=== PATIENT | female | born 1995 | race Caucasian/White ===

== ENCOUNTER 2016-07-04 20:44 | Emergency (ER) | payer BC ==
[~2016-07-04] VITALS: Ht 175.3 cm; Wt 59.1 kg
[2016-07-04 20:46] VITALS: BP 135/80; PULSE 99; RESP 16; TEMP 99.1; O2SAT 97
--- NOTE | 2016-07-04 20:56 | PD ---
HPI Chief Complaint: Cold / Flu Symptoms Time Seen by Provider: 20:56 Travel History International Travel<30 days: No Contact w/Intl Traveler<30days: No Traveled to known affect area: No History of Present Illness HPI 20-year-old female with no significant medical history presents to the emergency department for evaluation of sore throat, body aches, fever, and chills worsening over the last 4 days. Patient states she has been taking over- the-counter medication with no improvement in her symptoms. Denies nausea, vomiting, diarrhea. Denies any cough, chest pain, or tightness. Patient has no other symptoms to report. [facility] Past Medical History Medical History: Denies Significant Hx ?: Not LMP: 06/24/2016 Social History Alcohol Use: No Tobacco Use: No Substance Use: No Allergies-Medications (Allergen,Severity, Reaction): Coded Allergies: No Known Allergies (Unverified , 07/04/16) Reported Meds & Prescriptions Reported Meds & Active Scripts Active No Active Prescriptions or Reported Medications Review of Systems Except as stated in HPI: all other systems reviewed are Neg Physical Exam Narrative GENERAL: Well-nourished, well-developed female patient, ambulatory and in no acute distress SKIN: Warm and dry. HEAD: Normocephalic. Atraumatic EARS: Bilateral pinnae and external canals appear within normal limits. Bilateral tympanic membranes without erythema, dullness or perforation. EYES: No scleral icterus. No injection or drainage. ENT: Mucosa pink and moist. Moderate erythema without exudates. No uvular edema. No uvular, palatal, or tonsillar deviation. Airway patent. Nasal turbinates appear normal without nasal blood, purulent drainage or septal hematoma. NECK: Supple, trachea midline. No JVD or lymphadenopathy. CARDIOVASCULAR: Regular rate and rhythm without murmurs, gallops, or rubs. RESPIRATORY: Breath sounds equal bilaterally. No accessory muscle use. GASTROINTESTINAL: Abdomen soft, non-tender, nondistended. MUSCULOSKELETAL: No cyanosis, or edema. BACK: Nontender without obvious deformity. No CVA tenderness. Data Data Last Documented VS Vital Signs Date Time Temp Pulse Resp B/P Pulse Ox O2 Delivery O2 Flow Rate FiO2 07/04/16 20:46 99.1 99 16 135/80 97 Room Air Orders Influenzae A/B Antigen (07/04/16 20:51) Group A Rapid Strep Screen (07/04/16 20:51) Ibuprofen (Motrin) (07/04/16 21:00) Strep Culture (Group A) (07/04/16 21:00) MDM Medical Decision Making Medical Screen Exam Complete: Yes Emergency Medical Condition: Yes Medical Record Reviewed: Yes Differential Diagnosis Influenza versus pharyngitis strep versus bacterial versus viral syndrome versus common cold Narrative Course 20-year-old female presents to emergency department for evaluation. Influenza rapid strep screen are negative. This is likely a viral illness. Symptomatic management is recommended. Patient will be discharged home to follow-up with primary care provider. She is to return immediately with any acute worsening symptoms. Diagnosis Primary Impression: Viral illness Referrals: Primary Care Physician Patient Instructions: General Instructions, Influenza (ED) Departure Forms: Tests/Procedures, Work Release Enter return to work date: Jul 08, 2016 Additional Instructions: Rest Maintain adequate oral hydration Tylenol and/or ibuprofen directed on the package as needed for fever and/or pain Follow-up with your primary care provider Return immediately to the emergency department with any acute worsening of symptoms Med/Other Pt SpecificInfo: No Change to Meds Scripts No Active Prescriptions or Reported Meds Disposition: 01 DISCHARGE HOME Condition: Stable ReneHilaryva RODRIGUEZ Jul 04, 2016 20:56
[2016-07-04] MEDS ORDERED: IBUPROFEN 800 MG TAB PO ONE (21:00)
== END 2016-07-04 21:58 | disposition home or self-care (01) ==
LOC: NEPB 20:44
DX: B34.9 Viral infection, unspecified (principal)
CPT/HCPCS: 87081; 87804; 87880; 99283

== ENCOUNTER 2017-03-12 17:53 | Emergency (ER) | payer BC, OTHER ==
[~2017-03-12] VITALS: Ht 175.3 cm; Wt 60.0 kg
[2017-03-12 17:55] VITALS: BP 130/85; PULSE 96; RESP 18; TEMP 99.1; O2SAT 96
[2017-03-12] MEDS ORDERED: NORE5TAB PO (18:45)
[2017-03-12] MEDS ORDERED: IBUPROFEN 800 MG TAB PO ONE (19:15)
--- NOTE | 2017-03-12 19:15 | PD ---
HPI Chief Complaint: Fall Time Seen by Provider: 18:42 Travel History International Travel<30 days: No Contact w/Intl Traveler<30days: No Traveled to known affect area: No History of Present Illness HPI 21-year-old female here after being thrown off her horse and landing on the ground. She is reporting loss of consciousness, neck pain, right knee pain, low back pain. She denies paresthesia or weakness in extremities. She denies visual changes, chest pain, shortness of breath, abdominal pain. Severity moderate. Exacerbated by movement and relieved with rest. C-collar placed in triage. PFSH Past Medical History Medical History: Denies Significant Hx Diminished Hearing: No Tetanus Vaccination: > 5 Years Influenza Vaccination: Yes ?: Not LMP: 03/12/17 Past Surgical History Surgical History: No Previous Surgery Social History Alcohol Use: Yes (rare) Tobacco Use: No Substance Use: No Allergies-Medications (Allergen,Severity, Reaction): Coded Allergies: No Known Allergies (Unverified , 03/12/17) Reported Meds & Prescriptions Reported Meds & Active Scripts Active Flexeril (Cyclobenzaprine HCl) 10 Mg Tab 10 Mg PO TID Reported Norethindrone (Norethindrone Acetate) 5 Mg Tab 20 Mg PO DAILY Review of Systems Except as stated in HPI: all other systems reviewed are Neg General / Constitutional: No: Fever Eyes: No: Visual changes HENT: No: Headaches Cardiovascular: No: Chest Pain or Discomfort Respiratory: No: Shortness of Breath Gastrointestinal: No: Abdominal Pain Physical Exam Narrative GENERAL: Alert well-appearing female resting comfortably on the stretcher. SKIN: Focused skin assessment warm/dry. No areas of ecchymosis. HEAD: Atraumatic. Normocephalic. EYES: Pupils equal and round. No scleral icterus. No injection or drainage. EOMs intact ENT: No nasal bleeding or discharge. Mucous membranes pink and moist. NECK: Trachea midline. No JVD. Generalized posterior tenderness including cervical spine. CARDIOVASCULAR: Regular rate and rhythm. No murmur appreciated. CHEST: No rib tenderness or crepitus. RESPIRATORY: No accessory muscle use. Clear to auscultation. Breath sounds equal bilaterally. GASTROINTESTINAL: Abdomen soft, non-tender, nondistended. MUSCULOSKELETAL: No obvious deformities. No clubbing. No cyanosis. RLE: anterior knee pain, no deformity, no effusion, the joint is stable, pain with full flexion, 2+ dorsal pedis pulse. The extremity is neurovascular intact. NEUROLOGICAL: Awake and alert. No obvious cranial nerve deficits. Motor grossly within normal limits. Normal speech. PSYCHIATRIC: Appropriate mood and affect; insight and judgment normal. Data Data Last Documented VS Vital Signs Date Time Temp Pulse Resp B/P (MAP) Pulse Ox O2 Delivery O2 Flow Rate FiO2 03/12/17 18:46 17 99 Room Air 03/12/17 17:55 99.1 96 130/85 (100) Orders Orders Ct Cerv Spine W/O Contrast (03/12/17 ) Ct Brain W/O Iv Contrast(Rout) (03/12/17 ) Knee, Complete (4vws) (03/12/17 ) Spine, Lumbar Comp W/Obliq (03/12/17 ) Ed Urine Pregnancytest Poc (03/12/17 19:11) Ibuprofen (Motrin) (03/12/17 19:15) MDM Medical Decision Making Medical Screen Exam Complete: Yes Emergency Medical Condition: Yes Differential Diagnosis cervical strain vs cervical fx vs lumbar fx vs knee fx vs contusion Narrative Course 21 year old female here for evaluation after being thrown from a horse with reported LOC, neck pain, knee pain, and back pain. Her vitals are stable. She is well appearing. C-collar was placed in triage. She denies severe headache, visual changes, paresthesias/weakness in extremities, chest pain, abdominal pain , or incontinence. On exam she is noted to have posterior generalized neck pain , right anterior knee pain without deformity, and midline lumbar spine tenderness. Her abdomen is soft and nontender. CT of the brain: No acute abnormality CT of Cervical spine: No fracture X-ray lumbar spine: No fracture X-ray right knee: No fracture Diagnostic studies discussed with patient. The c-collar was removed. Her repeat neurologic exam is normal. She will be treated for upper and lower back strain and right knee contusion. Return precautions discussed. Patient verbalizes understanding and agrees plan. Diagnosis Primary Impression: Cervical strain Qualified Codes: S16.1XXA - Strain of muscle, fascia and tendon at neck level , initial encounter Additional Impressions: Lumbar strain Qualified Codes: S39.012A - Strain of muscle, fascia and tendon of lower back , initial encounter Head injury with loss of consciousness Referrals: Primary Care Physician Departure Forms: Tests/Procedures, Work Release Enter return to work date: Mar 17, 2017 Additional Instructions: take over the counter motrin 600-800mg by mouth every 6-8 hours as need for pain take the muscle relaxer as need for muscle spasms avoid heavy lifting or strenuous activities Scripts Cyclobenzaprine (Flexeril) 10 Mg Tab 10 MG PO TID for Muscle Spasm, #20 TAB 0 Refills Prov: Liz Riojas 03/12/17 Disposition: 01 DISCHARGE HOME Condition: Stable Liz Riojas Mar 12, 2017 19:15
--- NOTE | 2017-03-12 20:26 | RADRPT ---
EXAM DATE/TIME: 03/12/2017 20:19 [facility] COMPARISON: No previous studies available for comparison. INDICATIONS : Trauma, patient fell off horse. Positve LOC. RADIATION DOSE: 30.97 CTDIvol (mGy) MEDICAL HISTORY : None SURGICAL HISTORY : None. ENCOUNTER: Initial ACUITY: 1 day PAIN SCALE: 5/10 LOCATION: Left cranial TECHNIQUE: Multiple contiguous axial images were obtained of the head. Using automated exposure control and adj ustment of the mA and/or kV according to patient size, radiation dose was kept as low as reasonably a chievable to obtain optimal diagnostic quality images. DICOM format image data is available electro nically for review and comparison. FINDINGS: CEREBRUM: The ventricles are normal for age. No evidence of midline shift, mass lesion, hemorrhage or acute in farction. No extra-axial fluid collections are seen. POSTERIOR FOSSA: The cerebellum and brainstem are intact. The 4th ventricle is midline. The cerebellopontine angle i s unremarkable. EXTRACRANIAL: The visualized portion of the orbits is intact. SKULL: The calvaria is intact. No evidence of skull fracture. CONCLUSION: Normal examination. Juan Pablo Cardenas MD on March 12, 2017 at 20:24 Board Certified Radiologist. This report was verified electronically.
--- NOTE | 2017-03-12 20:28 | RADRPT ---
EXAM DATE/TIME: 03/12/2017 20:00 [facility] COMPARISON: No previous studies available for comparison. INDICATIONS : Patient complains of right knee pain after falling off of horse today. MEDICAL HISTORY : None. SURGICAL HISTORY : None. ENCOUNTER: Initial ACUITY: 1 day PAIN SCORE: 6/10 LOCATION: Right Knee FINDINGS: Four view examination of the right knee demonstrates no evidence of fracture or dislocation. Bony mi neralization is normal. The articular surfaces are intact. The suprapatellar soft tissues have a no rmal configuration. CONCLUSION: Unremarkable examination of the right knee. Juan Pablo Cardenas MD on March 12, 2017 at 20:26 Board Certified Radiologist. This report was verified electronically.
--- NOTE | 2017-03-12 20:29 | RADRPT ---
EXAM DATE/TIME: 03/12/2017 20:00 [facility] COMPARISON: No previous studies available for comparison. INDICATIONS : Patient complains of lower back pain after falling off of horse. MEDICAL HISTORY : None. SURGICAL HISTORY : None. ENCOUNTER: Initial ACUITY: 1 day PAIN SCORE: 6/10 LOCATION: L-Spine FINDINGS: There are five non-rib bearing vertebral bodies. The vertebral bodies are in normal alignment withou t evidence of subluxation or scoliosis. The disc spaces are maintained. The posterior elements are intact without evidence of spondylolysis. The pedicles are intact. Bony mineralization is normal. No fracture is identified. CONCLUSION: Unremarkable examination of the lumbar spine. Juan Pablo Cardenas MD on March 12, 2017 at 20:26 Board Certified Radiologist. This report was verified electronically.
--- NOTE | 2017-03-12 20:35 | RADRPT ---
EXAM DATE/TIME: 03/12/2017 20:19 [facility] COMPARISON: No previous studies available for comparison. INDICATIONS : Trauma, patient fell off horse. RADIATION DOSE: 14.88 CTDIvol (mGy) MEDICAL HISTORY : None SURGICAL HISTORY : None. ENCOUNTER: Initial ACUITY: 1 day PAIN SCALE: 5/10 LOCATION: Left neck TECHNIQUE: Volumetric scanning of the cervical spine was performed. Multiplanar reconstructions in the sagittal, coronal and oblique axial planes were performed. Using automated exposure control and adjustment o f the mA and/or kV according to patient size, radiation dose was kept as low as reasonably achievable to obtain optimal diagnostic quality images. DICOM format image data is available electronically f or review and comparison. FINDINGS: VERTEBRAE: Normal vertebral body height. ALIGNMENT: No evidence of subluxation. C2-C3: The bony spinal canal is normal in size. No evidence of disc bulge or herniation. The neural forami na are bilaterally patent. C3-C4: The bony spinal canal is normal in size. No evidence of disc bulge or herniation. The neural forami na are bilaterally patent. C4-C5: The bony spinal canal is normal in size. No evidence of disc bulge or herniation. The neural forami na are bilaterally patent. C5-C6: The bony spinal canal is normal in size. No evidence of disc bulge or herniation. The neural forami na are bilaterally patent. C6-C7: The bony spinal canal is normal in size. No evidence of disc bulge or herniation. The neural forami na are bilaterally patent. C7-T1: The bony spinal canal is normal in size. No evidence of disc bulge or herniation. The neural forami na are bilaterally patent. CONCLUSION: Negative examination. Juan Pablo Cardenas MD on March 12, 2017 at 20:30 Board Certified Radiologist. This report was verified electronically.
[2017-03-12] MEDS ORDERED: CYCL1TAB29 PO (20:45)
== END 2017-03-12 21:14 | disposition home or self-care (01) ==
LOC: NEPD 17:53
DX: S16.1XXA Strain of muscle, fascia and tendon at neck level, initial encounter (principal); S39.012A Strain of muscle, fascia and tendon of lower back, initial encounter; S06.9X9A Unspecified intracranial injury with loss of consciousness of unspecified duration, initial encounter; V80.010A Animal-rider injured by fall from or being thrown from horse in noncollision accident, initial encounter; Y93.52 Activity, horseback riding
CPT/HCPCS: 70450; 72110; 72125; 73564; 84703; 99285

== ENCOUNTER 2017-08-13 07:10 | Emergency (ER) | payer BC, OTHER ==
[~2017-08-13] VITALS: Ht 172.7 cm; Wt 60.0 kg
[~2017-08-13 07:10] MED LIST: CYCL10TA PO; NORE5TAB PO
[2017-08-13 07:38] VITALS: BP 136/78; PULSE 98; RESP 16; TEMP 97.3; O2SAT 100
[2017-08-13 08:15] LABS: AUTOMATED NEUTROPHIL # 12.6 TH/MM3 (1.8-7.7); BASOPHIL % 0.3 % (0.0-2.0); EOSINOPHIL % 0.1 % (0.0-4.0); HEMATOCRIT 49.7 % (35.0-46.0); HEMOGLOBIN 16.9 GM/DL (11.6-15.3); LYMPH % 3.5 % (9.0-44.0); LYMPHOCYTE # 0.5 TH/MM3 (1.0-4.8); MEAN CELL VOLUME 93.3 FL (80.0-100.0); MEAN CORPUSCULAR HEMOGLOBIN 31.7 PG (27.0-34.0); MEAN PLATELET VOLUME 9.2 FL (7.0-11.0); MONO % 3.5 % (0.0-8.0); MONOCYTE # 0.5 TH/MM3 (0-0.9); NEUT % 92.6 % (16.0-70.0); PLATELET COUNT 249 TH/MM3 (150-450); RED BLOOD COUNT 5.33 MIL/MM3 (4.00-5.30); RED CELL DISTRIBUTION WIDTH 12.4 % (11.6-17.2); WHITE BLOOD COUNT 13.6 TH/MM3 (4.0-11.0)
[2017-08-13 08:39] LABS: ALBUMIN 4.4 GM/DL (3.4-5.0); AST (GOT) 19 U/L (15-37); BICARBONATE 21.9 MEQ/L (21.0-32.0); BLOOD UREA NITROGEN 20 MG/DL (7-18); CALCIUM 9.3 MG/DL (8.5-10.1); CHLORIDE 106 MEQ/L (98-107); CREATININE 1.06 MG/DL (0.50-1.00); GLOMERULAR FILTRATION RATE 64 ML/MIN (>89); GLUCOSE,RANDOM 142 MG/DL (74-106); SODIUM (NA) 138 MEQ/L (136-145)
[2017-08-13 08:40] LABS: ALT (GPT) 22 U/L (10-53)
[2017-08-13 08:42] LABS: ALKALINE PHOSPHATASE 85 U/L (45-117); TOTAL PROTEIN 8.2 GM/DL (6.4-8.2)
== END 2017-08-13 10:45 | disposition left against medical advice (07) ==
LOC: NEPD 07:10
DX: R11.2 Nausea with vomiting, unspecified (principal); R19.7 Diarrhea, unspecified; Z53.21 Procedure and treatment not carried out due to patient leaving prior to being seen by health care provider
CPT/HCPCS: 80053; 83690; 85025; 99281